=== PATIENT | female | born 1945 | race Caucasian/White ===

== ENCOUNTER → 2018-03-08 | Outpatient (CLI) | payer MEDICARE, OTHER ==
[~2018-03-08] MED LIST: AMBIEN 10 MG TA10 MG; AMBIEN 10 MG TA10 MG PO; AXID300 MG PO; B-100 COMPLEX1 EAC1; B-12500 MCG PO; CIPROFLOXACIN500 M1 PO; COD LIVER OIL1 EAC4; CRESTOR5 MG; CYCLOBENZAPRINE10 MG; FISH OIL 1,001000 M2 PO; GLUCOSAMINE &1 EAC1; HYOMAX-DT0.375 MG PO; IBUPROFEN 800800 M1 PO; LUNESTA3 MG PO; MEDROLDOSEPACK PO; MOBIC7.5 M1 PO; NABUMETONE 500500 M1; NORCO 5-325 TA1 EACH PO; PERCOCET 5-3251 EACH PO; PRIMIDONE50 MG; PROZAC 20 MG20 MG PO; SENNA-S TABLET1 EACH PO; VITAMIN D 5050000 I1; VITAMIN D-32000 UNIT PO; VOLTAREN100 GM TOP; [UNRECOGNIZED DRUG - OTHER]
--- NOTE | 2018-04-16 10:00 | PAINCON ---
[address] [address] PAIN MANAGEMENT CONSULTATION Name: CATHLEENLISANDRO Crawford Room: [facility].#: [id number] Admission: 03/08/18 Attend Phys: Karolyn Sims MD Discharge: Date of : 45 Report #: [id number] THIS REPORT FOR: //name// CC: Buddy Sims DATE OF SERVICE: 03/08/2018 PRIMARY CARE PHYSICIAN: Buddy De Guzman DO CHIEF COMPLAINT: Low back, leg and neck pain, which has gotten worse since 08/2017. HISTORY OF PRESENT ILLNESS: The patient is a 73-year-old female who has been referred to the Pain Clinic for evaluation. The patient states she is having pain and discomfort in the low back area, experiencing pain that radiates down into her calf. States that the low back area and legs are crampy. She has been told that she has fibromyalgia. She has been seen by a education teacher in the past. She has tried nonsteroidal anti-inflammatory medications. She complains of some deep aching pains in her thighs, hamstring, calf and some pain in her knees as well. She has undergone an injection from a Pain Clinic in the past. She noted improvement in her pain. The patient is a caregiver for her . She has been in and out of the hospital a number of times. Lives at [facility]. The patient suffers from tremors. She is considering deep brain stimulation treatment at [facility] in the future. She feels that her tremors have been quite problematic since about 1987. She was hospitalized at that time for nervous breakdown. ALLERGIES: MIRAPEX, SULFA, REQUIP, NEURONTIN, NARCOTICS, LYRICA, REMERON, CIPRO, MIRTAZAPINE. PAST MEDICAL HISTORY: Tremors, fatigue, sleep apnea. The patient uses CPAP machine, restless leg syndrome, fibromyalgia, irritable bowel syndrome, gastritis, diverticulitis, hyperlipidemia, hypertension, metabolic syndrome, osteoarthritis, degenerative disease, lumbosacral spine, insomnia, kidney stones, mood disorder, cholelithiasis, esophageal reflux, allergic rhinitis, migraines, depression. PAST SURGICAL HISTORY: Spontaneous vaginal delivery x 3, two girls, one boy, tonsillectomy in 1952, kidney stone extraction in 2009, cholecystectomy in 2010, EGD in 2010, colonoscopy in 2010, deviated septum repair in 1999, left ankle surgery in 2004, heel spur surgery in 1996, cholecystectomy, foot surgery. SOCIAL HISTORY: She is , lives with her spouse at [facility]. Has one son and two daughters. [place]ired [place] [address] PAIN MANAGEMENT CONSULTATION Name: LISANDRO CONNOLLY Yvette Room: [facility]#: [id number] Admission: 03/08/18 Attend Phys: Karolyn Sims MD Discharge: Date of : 45 Report #: [id number] depression in 1997. REVIEW OF SYSTEMS: Generally good health, fatigue and weakness, wears glasses, glaucoma/cataracts, hearing loss/ringing in the ears, swelling of hands, feet, and ankles, frequent diarrhea, joint pain, joint stiffness and swelling, weakness of muscles and joints, pain or muscle pain, cramping, back pain, difficulty walking, tremors, nervousness/confusion, depression, insomnia in 1988. LABORATORY DATA: EMG and nerve conduction velocities dated 01/22/2018. IMPRESSION: Abnormal study. 1. Right S1 and left L5 radiculopathies, chronic with subacute changes, mild. 2. No evidence of large fiber peripheral neuropathy. Low amplitude tibial CMAPS have no other cause been seen in #1. MRI of lumbar spine as dated 08/09/2016: 1. At L4-L5, there is minimal disk bulge and endplate remodeling. There is [id number] bilateral facet arthropathy. There is grade 1 anterolisthesis. There is mild central canal stenosis. 2. L5-S1, there is a 4 x 4 x 2 mm right paracentral to lateral recess superior disk extrusion superimposed on a diffuse disk bulge and endplate osteophytosis. There is severe bilateral facet arthropathy. There is mild bilateral foraminal stenosis with abutment of the exiting L5 nerve roots. There is mild abutment of the traversing right S1 nerve. PAIN CLINIC ASSESSMENT/PQRS: 1. Height 5 feet 3 inches, weight 192 pounds, BMI is 33.6. 2. Vital signs: Blood pressure 164/79, pulse 64, respiratory rate 16, room air saturation is 96%, temperature 97.9. Pain score today 6-7/10. 3. Fall risk. The patient has not fallen in the last 3 months. 4. Blood thinner. The patient is not on a blood thinning medication. 5. Hypertension. The patient is not being treated for hypertension. 6. Opioid therapy greater than 6 weeks. The patient is not on an opioid regimen. 7. Risk assessment tool, low for opioid use. 8. Functional assessment tool 37/70. 9. Recreational drug use. The patient denies use of recreational drugs. 10. Tobacco: The patient does not smoke. 11. Alcohol: The patient does not drink on a regular basis. PHYSICAL EXAMINATION: GENERAL: The patient is a well-developed, well-nourished white female. Appears of stated age. She is alert and oriented x 3. Affect is appropriate. Speech is fluent. HEENT: Normocephalic, atraumatic. Extraocular eye [place] [address] PAIN MANAGEMENT CONSULTATION Name: LISANDRO CONNOLLY Room: [facility]#: [id number] Admission: 03/08/18 Attend Phys: Karolyn Sims MD Discharge: Date of : 45 Report #: [id number] nonicteric. Mucous membranes are moist. Hearing is within normal limits. NECK: Without JVD or adenopathy. ABDOMEN: Nontender. EXTREMITIES: Upper extremity muscle strength is judged to be 4+/5 for the major muscle groups. The patient does have a tremor in her hands. States that it can be more problematic in the right. Has some difficulty in drinking liquid beverages because of the tremor. The patient states that she has movement in her legs at night that indicating restless leg syndrome, has pain and discomfort in the lower left and right leg as well as some low back pain with discomfort in the area of the sciatic nerve. The patient is walking with a cane. Uses her arms to move from a sitting to a standing position. RECOMMENDATIONS: We discussed treatment options with the patient. Risks and benefits of an epidural steroid injection were discussed. Possible complications of the procedure, which could include infection, worsening of pain, no improvement in pain was discussed. IMPRESSION: 1. Lumbar radicular pain with pain radiating down into the L5-S1 area involving low back and in the legs bilaterally. 2. Possible urinary tract infection ongoing at this juncture, the patient is scheduled to see her primary in this regard. 3. Tremors. 4. Fatigue. 5. Sleep apnea. The patient uses CPAP machine. 6. Restless leg syndrome. 7. Fibromyalgia. 8. Irritable bowel syndrome. 9. Gastritis. 10. Diverticulitis. 11. Hyperlipidemia. 12. Hypertension. 13. Metabolic syndrome. 14. Osteoarthritis. 15. Degenerative disease. 16. Lumbosacral spine. 17. Insomnia. 18. Kidney stones. 19. Mood disorder. 20. Cholelithiasis. 21. Esophageal reflux. 22. Allergic rhinitis. 23. Migraines. 24. Depression. RECOMMENDATIONS: The patient will follow up with her [place] [address] PAIN MANAGEMENT CONSULTATION Name: CATHLEENLISANDRO K Room: [facility] JJ Benito#: [id number] Admission: 03/08/18 Attend Phys: Karolyn Sims MD Discharge: Date of : 45 Report #: [id number] has been cleared of a urinary tract infection, she will return to the Pain Clinic at which time she will consider undergoing an epidural steroid injection. <ELECTRONICALLY SIGNED> By: Karolyn Sims MD 04/16/18 [id number]. MD ANDRE Desai
== END ==
LOC: M.PC 04:40
DX: M51.16 Intervertebral disc disorders with radiculopathy, lumbar region (principal); G47.30 Sleep apnea, unspecified; M79.7 Fibromyalgia; E78.5 Hyperlipidemia, unspecified; I10 Essential (primary) hypertension; M19.90 Unspecified osteoarthritis, unspecified site; N20.0 Calculus of kidney; K80.20 Calculus of gallbladder without cholecystitis without obstruction; K21.9 Gastro-esophageal reflux disease without esophagitis; G43.909 Migraine, unspecified, not intractable, without status migrainosus; K57.92 Diverticulitis of intestine, part unspecified, without perforation or abscess without bleeding; G25.81 Restless legs syndrome; K58.9 Irritable bowel syndrome, unspecified; K29.70 Gastritis, unspecified, without bleeding; E88.81 Metabolic syndrome and other insulin resistance; G47.00 Insomnia, unspecified; J30.9 Allergic rhinitis, unspecified; R53.83 Other fatigue; F32.9 Major depressive disorder, single episode, unspecified; F34.9 Persistent mood [affective] disorder, unspecified; Z79.899 Other long term (current) drug therapy

== ENCOUNTER → 2018-04-17 | Outpatient (CLI) | payer MEDICARE, OTHER ==
--- NOTE | 2018-05-16 15:56 | PAINCON ---
[address] [address] PAIN MANAGEMENT CONSULTATION Name: CATHLEENLISANDRO Yvette [facility] [id number] Admission: 04/17/18 Attend Phys: Karolyn Sims MD Discharge: Date of : 45 Report #: [id number] THIS REPORT FOR: //name// CC: Buddy Sims DATE OF SERVICE: 04/17/2018 FOLLOWUP COMPLAINT: Here for an epidural injection. FOLLOWUP HISTORY: The patient is a 73-year-old female who has been seen in the pain clinic because of pain and discomfort. She has been experiencing pain in her low back area with pain that is radiating down both lower portion of her back as well as some pain down into her anterior thigh areas. Describes the pain and discomfort as cramping. Notes that she has a history of fibromyalgia. She has been followed by a pattern vault clerk. She has tried nonsteroidal anti-inflammatory medications. Continues to have a deep aching pain in her thighs, hamstrings, calf and in the area of her knees. She has undergone epidural steroid injections in the past and gleaned benefits from these. She would like to proceed today. She is having pain, which is most problematic in the anterior portion of her thigh in approximately the L1-L2 distribution. She has elected to undergo an epidural steroid injection at this juncture. As you may recall, she is a primary caregiver for her . She lives in [facility]. She suffers from tremors. She is considering deep brain stimulation at in the future. Her tremors have been problematic since 1987. ALLERGIES: MIRAPEX, SULFA, REQUIP, NEURONTIN, NARCOTICS, LYRICA, REMERON, CIPRO, And MIRTAZAPINE. CURRENT MEDICATIONS: Vitamin D3 2000 units, vitamin B12 500 mg, Flexeril 10 mg p.o. t.i.d., Voltaren 100 mg topical b.i.d., fish oil 1000 mg daily, Prozac 20 mg total of 40 mg daily, nabumetone 500 mg, Axid 300 mg capsule, primidone 50 mg at bedtime, Ambien 10 mg at bedtime, B complex, and probiotic. PAIN CLINIC ASSESSMENT/PQRS: 1. The patient is not being treated for osteoarthritis or rheumatoid arthritis. 2. Height 5 feet 3 inches, weight 186 pounds, BMI is 32. 3. Vital Signs: Blood pressure 157/71, heart rate 58, respiratory rate 16, room air saturation 93%, and temperature 98.4. 4. Pain score 5/10. 5. Fall risk. The patient has not fallen in the last 3 months. She does walk with a walker. 6. Blood thinner. The patient is not on a blood thinning medication. 7. Hypertension. The patient is not being treated for hypertension. 8. Opioid therapy greater than 6 weeks. The patient [place] [address] PAIN MANAGEMENT CONSULTATION Name: CATHLEENLISANDRO K Room: [facility]#: [id number] Admission: 04/17/18 Attend Phys: Karolyn Sims MD Discharge: Date of : 45 Report #: [id number] 9. Risk assessment tool, low for opioid use. 10. Functional assessment tool . 11. Drug use. The patient denies use of recreational drugs. 12. Tobacco: The patient denies use of tobacco. 13. Alcohol: The patient denies use of alcoholic beverages on a regular basis. PHYSICAL EXAMINATION: GENERAL: The patient is a well-developed, well-nourished white female. Appears her stated age. She is alert and oriented x 3. Affect is appropriate. Speech is fluent. The patient has a tremor, which is noticeable involving her head and arms as well as her entire body. HEENT: Normocephalic, atraumatic. Extraocular eye muscles intact. The patient is wearing glasses. Sclerae nonicteric. Mucous membranes are moist. Hearing is within normal limits. NECK: Without JVD or adenopathy. ABDOMEN: Nontender. Bowel sounds are positive. EXTREMITIES: Upper extremity muscle strength judged to be 4+/5 for the major muscle groups. The patient has a tremor involving her hands as well. She seems to have more tremor activity on the right. Sometimes has difficulty drinking liquids because of the tremor. The patient has movement in her legs at night indicated restless leg syndrome. Has discomfort in the left as well as the right leg. Has some pain in her back. Complains of pain and discomfort in the left and right groin/anterior thigh area and L1-L2. The patient is using her walker. IMPRESSION: 1. Lumbar radicular pain with pain radiating into the L2-L3 area, which is most problematic today. 2. Possible urinary tract infection has been ruled out. 3. Tremors. 4. Fatigue. 5. Sleep apnea. The patient uses CPAP machine. 6. Restless leg syndrome. 7. Fibromyalgia. 8. Irritable bowel syndrome. 9. Gastritis. 10. Diverticulitis. 11. Hyperlipidemia. 12. Hypertension. 13. Metabolic syndrome. 14. Osteoarthritis. 15. Degenerative disk disease. 16. Lumbosacral spine. 17. Insomnia. 18. Kidney stones. 19. Mood disorder. [address] [place] [address] PAIN MANAGEMENT CONSULTATION Name: LISANDRO CONNOLLY Room: [facility]#: [id number] Admission: 04/17/18 Attend Phys: Karolyn Sims MD Discharge: Date of : 45 Report #: [id number] 20. Cholelithiasis. 21. Esophageal reflux. 22. Allergic rhinitis. 23. Migraines. 24. Depression. RECOMMENDATIONS: We discussed treatment options with the patient. She has returned today for an epidural steroid injection. Risks and benefits of the procedure were again reviewed. They include but are not limited infection, increased muscle soreness, headache, bleeding, worsening of the pain, no improvement in pain. The patient continues to have pain and discomfort. It varies from the anterior portion of her thigh to pain in the posterior portion of the L5-S1 area. Today, she feels that the pain is most problematic in the anterior portion of her thigh in the L1-L2 distribution. We will proceed with an epidural steroid in this area with the hopes that this would improve her pain and decrease some of the discomfort she is experiencing. We have also spoken with the patient regarding lifting. She states that she has been lifting her 's wheelchair. We have informed her that this might be problematic should she develop a compression fracture. Those generally worsen over time. At this juncture, she states that she will probably stop lifting his wheelchair. As you may recall, she lives in [facility] and she is his primary caregiver. PROCEDURE NOTE: The patient was taken to the procedure area. Her back was sterilely prepped with a Betadine solution. The patient was assisted in getting on the examination table. A pillow was placed under her abdomen to bolster and improve positioning. Anterior, posterior as well as lateral viewing with fluoroscopy was performed. The patient's back was sterilely prepped. At L2-L3, bupivacaine of 0.25% was infiltrated. A 17-gauge Tuohy with loss of resistance technique was used to gain access to the epidural space. There was no CSF, heme or paresthesia. Total of 80 mg Depo-Medrol, 40 mg triamcinolone and 2 mL of 0.25% bupivacaine was injected. The patient tolerated the procedure well. There was no bleeding. A Band-Aid was applied. The patient was taken to the recovery room where she remained for an appropriate amount of time. She will call us if she has any concerns. We would like to thank you for letting us participate in her care. We hope she continues to improve. <ELECTRONICALLY SIGNED> By: Karolyn Sims MD 05/16/18 [id number]. Gregorio Sims MD /alexa
== END | disposition home or self-care (01) ==
LOC: M.PC 05:19
DX: M51.16 Intervertebral disc disorders with radiculopathy, lumbar region (principal); G47.30 Sleep apnea, unspecified; G25.81 Restless legs syndrome; M79.7 Fibromyalgia; K58.9 Irritable bowel syndrome, unspecified; K29.70 Gastritis, unspecified, without bleeding; K57.92 Diverticulitis of intestine, part unspecified, without perforation or abscess without bleeding; I10 Essential (primary) hypertension; E78.5 Hyperlipidemia, unspecified; E88.81 Metabolic syndrome and other insulin resistance; M19.90 Unspecified osteoarthritis, unspecified site; G47.00 Insomnia, unspecified; F39 Unspecified mood [affective] disorder; K80.20 Calculus of gallbladder without cholecystitis without obstruction; K21.9 Gastro-esophageal reflux disease without esophagitis; J30.9 Allergic rhinitis, unspecified; G43.909 Migraine, unspecified, not intractable, without status migrainosus; F32.9 Major depressive disorder, single episode, unspecified; Z87.442 Personal history of urinary calculi; Z88.8 Allergy status to other drugs, medicaments and biological substances; Z79.899 Other long term (current) drug therapy